=== PATIENT | female | born 1960 | race African-American/Black ===

== ENCOUNTER 2016-10-06 01:44 | Emergency (ER) | payer BC, OTHER ==
[2016-10-06] MEDS ORDERED: LIDOCAINE 5% (700 MG) TRANSDERMAL ADH..PATCH TP ONE (06:28)
--- NOTE | 2016-10-06 08:04 | ER Document Report ---
ED General - General Chief Complaint: Fall Stated Complaint: FALL/NECK PAIN Time Seen by Provider: 10/06/16 06:13 TRAVEL OUTSIDE OF THE [place] IN LAST 30 DAYS: No - HPI Patient complains to provider of: neck pain blood pressure issue Notes: Patient's coming in for evaluation of neck pain and concerned about her blood pressure. Patient states she had a fall a few days ago injuring the right side of her neck. Patient has a history of chronic neck pain previous visits does indicate the patient was on pain management for his chronic back pain. Patient states she was just like to have her neck evaluated with an x-ray is that she does have hardware was in her neck. Patient also states that she is out of her blood pressure medication metoprolol 25 mg daily. Denies any other complaints denies loss consciousness denies blood thinning medication. - Related Data Allergies/Adverse Reactions: morphine [Morphine] Allergy (Verified 10/06/16 02:09) Hives Past Medical History - Social History Smoking Status: Unknown if Ever Smoked Family History: Reviewed & Not Pertinent Patient has suicidal ideation: No Patient has homicidal ideation: No - Past Medical History Cardiac Medical History: Reports: Hx Hypertension Pulmonary Medical History: Reports: Hx Asthma, Hx Bronchitis, Hx COPD Denies: Hx Tuberculosis Renal/ Medical History: Denies: Hx Peritoneal Dialysis Psychiatric Medical History: Denies: Hx Depression Past Surgical History: Reports: Hx Breast Surgery - left breast cyst removed, Hx Hysterectomy, Hx Orthopedic Surgery - right knee orthoscopy - Immunizations Hx Diphtheria, Pertussis, Tetanus Vaccination: Yes - 2010 Review of Systems - Review of Systems Constitutional: No symptoms reported EENT: Other - Neck pain Cardiovascular: No symptoms reported Respiratory: No symptoms reported Gastrointestinal: No symptoms reported Genitourinary: No symptoms reported Female Genitourinary: No symptoms reported Musculoskeletal: No symptoms reported Skin: No symptoms reported Hematologic/Lymphatic: No symptoms reported Neurological/Psychological: No symptoms reported Physical Exam - Vital signs Vitals: Temp Pulse Resp BP Pulse Ox 98.2 F 82 20 185/109 H 97 10/06/16 02:10 10/06/16 02:10 10/06/16 02:10 10/06/16 02:10 10/06/16 02:10 Interpretation: Hypertensive - General General appearance: Appears well, Alert - HEENT Head: Normocephalic, Atraumatic Eyes: Normal Conjunctiva: Normal Cornea: Normal Pupils: PERRL Neck: Normal - No midline tenderness - Respiratory Respiratory status: No respiratory distress Chest status: Nontender Breath sounds: Normal Chest palpation: Normal - Cardiovascular Rhythm: Regular Heart sounds: Normal auscultation Murmur: No - Abdominal Inspection: Normal Distension: No distension Bowel sounds: Normal Tenderness: Nontender Organomegaly: No organomegaly - Back Back: Normal, Nontender - Extremities General upper extremity: Normal inspection, Nontender, Normal color, Normal ROM , Normal temperature General lower extremity: Normal inspection, Nontender, Normal color, Normal ROM , Normal temperature, Normal weight bearing. No: Latasha's sign - Neurological Neuro grossly intact: Yes Cognition: Normal Orientation: AAOx4 [place] Coma Scale Eye Opening: Spontaneous [place] Coma Scale Verbal: Oriented [place] Coma Scale Motor: Obeys Commands [place] Coma Scale Total: 15 Speech: Normal Motor strength normal: LUE, RUE, LLE, RLE Sensory: Normal - Psychological Associated symptoms: Normal affect, Normal mood - Skin Skin Temperature: Warm Skin Moisture: Dry Skin Color: Normal Course - Re-evaluation Re-evalutation: 10/06/16 14:50 Patient will be given a prescription for her blood pressure medication. X-ray of the patient's neck is otherwise negative. Examination does not reveal any concerning traumatic findings. Patient will be discharged home follow-up her primary care physician. - Vital Signs Vital signs: Temp Pulse Resp BP Pulse Ox 97.6 F 68 16 182/107 H 95 10/06/16 08:26 10/06/16 08:26 10/06/16 08:26 10/06/16 08:26 10/06/16 08:26 Discharge - Discharge Clinical Impression: acute exacerbation of chronic neck pain HTN (hypertension) Qualifiers: Hypertension type: essential hypertension Qualified Code(s): I10 - Essential ( primary) hypertension Condition: Good Disposition: HOME, SELF-CARE Instructions: High Blood Pressure ([facility]), Neck Injury (Cervical Strain) ([facility]) Additional Instructions: May continue to take Tylenol and Motrin for your neck pain. You may obtain Lidoderm/lidocaine patches or lidocaine cream [id number] please ask her pharmacist I would also recommend applying ice and heat to your neck. Please follow-up with your primary care physician or the clinics provided. Please take medication as prescribed. Prescriptions: Metoprolol Succinate [Toprol Xl] 25 mg PO DAILY #30 [id number] Forms: Return to Work
[2016-10-06 08:30] VITALS: BP 182/107
== END 2016-10-06 08:30 | disposition home or self-care (01) ==
LOC: ER 01:44
DX: M54.2 Cervicalgia (principal); G89.29 Other chronic pain; W19.XXXA Unspecified fall, initial encounter; I10 Essential (primary) hypertension; J44.9 Chronic obstructive pulmonary disease, unspecified; Z98.890 Other specified postprocedural states; Z88.5 Allergy status to narcotic agent
CPT/HCPCS: 72040; 99283